=== PATIENT | male | born 1970 | race Caucasian/White ===

== ENCOUNTER 2021-03-05 11:51 | Emergency (ER) | payer SELFPAY ==
[2021-03-05] MEDS ORDERED: KETOROLAC TROMETHAMINE 30 MG/1 ML VIAL IM ONE (12:04)
[2021-03-05] MEDS ORDERED: LIDOCAINE 5% TOPICAL PATCH TP ONE (12:04)
[2021-03-05 12:05] VITALS: PULSE 82; TEMP 98.3; BMI 29.8
[2021-03-05] MEDS ORDERED: LIDOCAINE 5% TOPICAL PATCH ONE (12:06)
[2021-03-05] MEDS ORDERED: KETOROLAC TROMETHAMINE 30 MG/1 ML VIAL ONE (12:06)
[2021-03-05 12:43] VITALS: BP 138/94
== END 2021-03-05 12:43 | disposition home or self-care (01) ==
LOC: FER 11:51
PROC: 3E0233Z Introduction of Anti-inflammatory into Muscle, Percutaneous Approach (ICD-10-PCS; principal; 2021-03-05)
DX: M54.50 Low back pain, unspecified (principal); I10 Essential (primary) hypertension; X50.0XXA Overexertion from strenuous movement or load, initial encounter
CPT/HCPCS: 99284-25

== ENCOUNTER 2021-03-08 14:25 | Inpatient (IN) | payer OTHER, BC ==
[2021-03-08] MEDS ORDERED: MIDAZOLAM HCL 2 MG/2 ML SINGLE DOSE VIAL IVPUSH ONE (15:48)
[2021-03-08] MEDS ORDERED: MIDAZOLAM HCL 2 MG/2 ML SINGLE DOSE VIAL ONE ×3 (15:51→17:44)
[2021-03-08 15:53] LABS: BASO % 4.5 % (0-2.0); EOS % 1.4 % (0-4.5); HEMATOCRIT 44.3 % (35.4-49); HEMOGLOBIN 15.2 GM/dl (11.7-16.9); LYMPH % 27.1 % (8-40); MCH 30.1 pg (25.7-33.7); MCHC 34.2 g/dl (32.0-35.9); MEAN CELL VOLUME 87.9 fl (80-96); MEAN PLT VOLUME 7.7 fl (7.5-11.1); MONO % 9.3 % (3.8-10.2); NEUT % 57.7 % (42.8-82.8); PLATELET COUNT 339 10^3/uL (134-434); RBC 5.05 M/mm3 (4.00-5.60); RDW 12.3 % (11.9-15.9)
[2021-03-08 16:02] LABS: ALBUMIN 3.7 g/dl (3.4-5.0); BILIRUBIN,TOTAL 0.6 mg/dl (0.2-1); CALCIUM 9.2 mg/dl (8.5-10); CREATININE 0.8 mg/dl (0.55-1.3); TOT PROT 7.1 g/dl (6.4-8.2)
[2021-03-08] MEDS ORDERED: ROCURONIUM BROMIDE 50 MG/5 ML SYRINGE ONE (17:44)
[2021-03-08] MEDS ORDERED: fentaNYL CITRATE 250 MCG/5 ML VIAL ONE ×2 (17:44→20:07)
[2021-03-08] MEDS ORDERED: PROPOFOL 20 ML ONE ×2 (17:44→21:16)
[2021-03-08] MEDS ORDERED: GENTAMICIN SO4 80 MG/2 ML VIAL ONE (18:55)
[2021-03-08] MEDS ORDERED: THROMBIN (BOVINE) 5,000 UNIT VIAL TP ONE ×2 (18:55→20:09)
[2021-03-08] MEDS ORDERED: HYDROmorphone HCl 2 MG/ML VIAL ONE (19:53)
[2021-03-08] MEDS ORDERED: ceFAZolin SODIUM 1 GM VIAL IVPB ONE (20:00)
[2021-03-08] MEDS ORDERED: DESFLURANE GAS 240 ML BOTTLE IH ONE (20:01)
[2021-03-08] MEDS ORDERED: GENTAMICIN SO4 80 MG/2 ML VIAL IVPB ONE (20:09)
[2021-03-08] MEDS ORDERED: DEXAMETHASONE SOD PHOSPHATE 4 MG/1 ML VIAL ONE (20:19)
[2021-03-08] MEDS ORDERED: ceFAZolin SODIUM 1 GM VIAL ONE (20:19)
[2021-03-08] MEDS ORDERED: ONDANSETRON 4 MG/2 ML VIAL ONE (20:19)
[2021-03-08] MEDS ORDERED: TRANEXAMIC ACID 1000 MG/10 ML VIAL ONE (20:19)
[2021-03-08] MEDS ORDERED: BUPIVACAINE HCL/PF 0.25% (2.5MG/ML) 10 ML VIAL IJ ONE (21:00)
[2021-03-08] MEDS ORDERED: BUPIVACAINE HCL/PF 0.25% (2.5MG/ML) 10 ML VIAL ONE (21:03)
[2021-03-08] MEDS ORDERED: GLYCOPYRROLATE 0.2 MG/1 ML VIAL ONE (21:10)
[2021-03-08] MEDS ORDERED: NEOSTIGMINE METHYLSULFATE 0.5 MG/1 ML - 10 ML MDV ONE (21:10)
[2021-03-08] MEDS ORDERED: LABETALOL HCL 5 MG/1 ML (100MG/20 ML VIAL) ONE (21:15)
[2021-03-08] MEDS ORDERED: BACITRACIN 15 GM TUBE TOPICAL OINTMENT ONE (21:20)
[2021-03-08] MEDS ORDERED: BACITRACIN 15 GM TUBE TOPICAL OINTMENT TP ONE (21:26)
[2021-03-08] MEDS ORDERED: oxyCODONE HCL 5 MG TABLET PO PRN (21:43)
[2021-03-08] MEDS ORDERED: ONDANSETRON 4 MG/2 ML VIAL IVPUSH PRN ×2 (21:43→22:01)
[2021-03-08] MEDS ORDERED: HYDROmorphone HCl 2 MG/ML VIAL IVPB PRN (21:44)
[2021-03-08] MEDS ORDERED: ACETAMINOPHEN 1000 MG/100 ML VIAL IVPB ONE (22:03)
[2021-03-08] MEDS ORDERED: HYDROmorphone HCl 2 MG/ML VIAL IVPUSH PRN (22:32)
[2021-03-08] MEDS ORDERED: LOSARTAN POTASSIUM 25 MG TABLET PO ONE (22:38)
[2021-03-08] MEDS: D5-1/2NS+20 MEQ KCL - 20 MEQ/1,000 ML INFUS.BAG IV SCH (23:33)
[2021-03-08] MEDS: DOCUSATE SODIUM 100 MG CAPSULE (FP) PO SCH (23:33)
[2021-03-08] MEDS: diazePAM 5 MG TABLET PO SCH (23:33)
[2021-03-09] MEDS ORDERED: ceFAZolin SODIUM 1 GM VIAL ONE ×2 (02:41→10:52)
[2021-03-09] MEDS ORDERED: DEXTROSE 5%-WATER - 50 ML IVPB ONE ×2 (02:41→10:52)
[2021-03-09] MEDS: CEFAZOLIN 1 GM in DEXTROSE 5%-WATER - 1 GM/50 ML IVPB IVPB SCH ×2 (03:00→11:00)
[2021-03-09] MEDS ORDERED: CEFAZOLIN 1 GM in DEXTROSE 5%-WATER - 1 GM/50 ML IVPB IVPB SCH (04:00)
[2021-03-09] MEDS: DOCUSATE SODIUM 100 MG CAPSULE (FP) PO SCH ×4 (05:45→21:49)
[2021-03-09] MEDS: diazePAM 5 MG TABLET PO SCH ×4 (05:46→21:49)
[2021-03-09 07:38] LABS: BASO % 0.1 % (0-2.0); EOS % 0.1 % (0-4.5); HEMATOCRIT 40.5 % (35.4-49); HEMOGLOBIN 14.3 GM/dL (11.7-16.9); LYMPH % 10.7 % (8-40); MCH 30.7 pg (25.7-33.7); MCHC 35.5 g/dl (32.0-35.9); MEAN CELL VOLUME 86.7 fl (80-96); MEAN PLT VOLUME 7.7 fl (7.5-11.1); MONO % 3.9 % (3.8-10.2); NEUT % 85.2 % (42.8-82.8); PLATELET COUNT 328 10^3/uL (134-434); RBC 4.67 M/mm3 (4.00-5.60); RDW 12.9 % (11.9-15.9); WHITE BLOOD COUNT 8.8 K/mm3 (4.0-10.0)
[2021-03-09 07:42] LABS: CALCIUM 8.5 mg/dL (8.5-10.1)
[2021-03-09 07:43] LABS: ALBUMIN 3.2 g/dl (3.4-5.0); BLOOD UREA NITROGEN 11.2 mg/dL (7-18); MAGNESIUM 2.3 mg/dL (1.8-2.4)
[2021-03-09 07:46] LABS: CREATININE 0.9 mg/dL (0.55-1.3); PHOSPHOROUS 3.6 mg/dL (2.5-4.9)
[2021-03-09 07:47] LABS: BILIRUBIN,TOTAL 0.3 mg/dL (0.2-1); TOT PROT 6.9 g/dl (6.4-8.2)
[2021-03-09] MEDS: D5-1/2NS+20 MEQ KCL - 20 MEQ/1,000 ML INFUS.BAG IV SCH (10:08)
[2021-03-09] MEDS: LOSARTAN POTASSIUM 25 MG TABLET PO SCH (10:56)
[2021-03-09] MEDS ORDERED: DEXAMETHASONE SOD PHOSPHATE 4 MG/1 ML VIAL IVPUSH ONE (11:02)
[2021-03-09] MEDS: GABAPENTIN 300 MG CAPSULE PO SCH ×2 (14:29→21:48)
[2021-03-09] MEDS ORDERED: PT OWN MED DRAWER 7, Y5N ONE (14:56)
[2021-03-09] MEDS: MUPIROCIN 2% TOPICAL OINTMENT FOR DECOLONIZATION NS SCH ×2 (14:58→21:49)
[2021-03-09] MEDS ORDERED: HYDROmorphone HCl 2 MG/ML VIAL IVPB PRN (15:41)
[2021-03-09] MEDS ORDERED: ONDANSETRON 4 MG/2 ML VIAL IVPUSH PRN (16:38)
[2021-03-09] MEDS ORDERED: ACETAMINOPHEN 325 MG TABLET (FP) PO ONE (17:42)
[2021-03-09] MEDS ORDERED: CHLORHEXIDINE GLUCONATE 4% CLEANSER FOR DECOLONIZATION TP SCH (22:00)
[2021-03-10] MEDS: oxyCODONE HCL 5 MG TABLET PO PRN ×2 (04:54→18:39)
[2021-03-10] MEDS: DOCUSATE SODIUM 100 MG CAPSULE (FP) PO SCH ×3 (05:59→21:37)
[2021-03-10] MEDS: GABAPENTIN 300 MG CAPSULE PO SCH ×3 (05:59→21:37)
[2021-03-10] MEDS: diazePAM 5 MG TABLET PO SCH ×3 (06:00→21:38)
[2021-03-10] MEDS ORDERED: PT OWN MED DRAWER 7, Y5N ONE (07:23)
[2021-03-10] MEDS: LOSARTAN POTASSIUM 25 MG TABLET PO SCH (09:59)
[2021-03-10] MEDS: MUPIROCIN 2% TOPICAL OINTMENT FOR DECOLONIZATION NS SCH (10:00)
[2021-03-10 13:10] VITALS: BMI 31.1
[2021-03-10] MEDS ORDERED: amLODIPine BESYLATE 10 MG TABLET (FP) PO ONE (18:45)
[2021-03-11] MEDS: GABAPENTIN 300 MG CAPSULE PO SCH ×2 (05:12→13:36)
[2021-03-11] MEDS: DOCUSATE SODIUM 100 MG CAPSULE (FP) PO SCH ×2 (05:12→13:36)
[2021-03-11] MEDS: diazePAM 5 MG TABLET PO SCH ×2 (05:13→13:36)
[2021-03-11] MEDS: oxyCODONE HCL 5 MG TABLET PO PRN (07:58)
[2021-03-11] MEDS: LOSARTAN POTASSIUM 25 MG TABLET PO SCH (09:09)
[2021-03-11 14:14] VITALS: BP 135/86; PULSE 110; TEMP 99.6
== END 2021-03-11 17:46 | disposition home health service (06) | DRG 310 ==
LOC: JER 14:25 → FER 14:25 → JICU 22:10 → J6S 03-10 17:39
PROVIDERS: ADMIT Internal Medicine Pulmonary Disease; ATTEND Internal Medicine
PROC: 01NR0ZZ Release Sacral Nerve, Open Approach (ICD-10-PCS; 2021-03-08)
PROC: 0ST40ZZ Resection of Lumbosacral Disc, Open Approach (ICD-10-PCS; principal; 2021-03-08 18:10)
DX: M51.17 Intervertebral disc disorders with radiculopathy, lumbosacral region (principal); M43.17 Spondylolisthesis, lumbosacral region; M48.07 Spinal stenosis, lumbosacral region; I10 Essential (primary) hypertension; M21.371 Foot drop, right foot; Z86.16 Personal history of COVID-19
CPT/HCPCS: 36415; 72100-TC-FY; 72148-TC; 80053; 83735; 84100; 85025; 88304-TC; 94760; 97116-GP; 97161-GP; 99291; C9803; J0131; U0003; U0005